=== PATIENT | male | born 1965 | race Caucasian/White ===

== ENCOUNTER 2019-04-04 04:23 | Emergency (ER) | payer BC, OTHER ==
[2019-04-04] MEDS ORDERED: Sodium Chloride 0.9% 1,000 ML IV ONE (04:36)
[2019-04-04] MEDS ORDERED: 50% Dextrose in Water 50 ML Syringe IVPUSH ONE (04:36)
--- NOTE | 2019-04-04 04:38 | EDM.PDOC ---
ED HPI GENERAL MEDICAL PROBLEM - General Chief Complaint: Neurological Problem Stated Complaint: UNKNOWN Time Seen by Provider: 04/04/19 04:36 - History of Present Illness INITIAL COMMENTS - FREE TEXT/NARRATIVE: HISTORY AND PHYSICAL: History of present illness: Patient 54-year-old white male with history of diabetes who presents with concern of generalized weakness and dizziness on arrival patient noted a blood sugar 54 he denies chest pain shortness of breath numbness weakness or other concerns. Review of systems: As per history of present illness and below otherwise all systems reviewed and negative. Past medical history: As per history of present illness and as reviewed below otherwise noncontributory. Surgical history: As per history of present illness and as reviewed below otherwise noncontributory. Social history: No reported history of drug or alcohol abuse. Family history: As per history of present illness and as reviewed below otherwise noncontributory. Physical exam: HEENT: Atraumatic, normocephalic, pupils reactive, negative for conjunctival pallor or scleral icterus, mucous membranes moist, throat clear, neck supple, nontender, trachea midline. Lungs: Clear to auscultation, breath sounds equal bilaterally, chest nontender. Heart: S1S2, regular, negative for clicks, rubs, or JVD. Abdomen: Soft, nondistended, nontender. Negative for masses or hepatosplenomegaly. Negative for costovertebral tenderness. Pelvis: Stable nontender. Genitourinary: Deferred. Rectal: Deferred. Extremities: Atraumatic, negative for cords or calf pain. Neurovascular unremarkable. Neuro: Awake, alert, oriented. Cranial nerves II through XII unremarkable. Cerebellum unremarkable. Motor and sensory unremarkable throughout. Exam nonfocal. Diagnostics: CBC CMP troponin PT/INR UA urine drug screen EtOH chest x-ray EKG CT brain Therapeutics: IV O2 monitor 1 amp D50 Impression: #1 dizziness #2 generalized weakness #3 hypoglycemia #4 diabetes Definitive disposition and diagnosis as appropriate pending reevaluation and review of above. - Related Data Allergies Allergy/AdvReac Type Severity Reaction Status Date / Time Fresh Cut Grass Allergy Other Uncoded 04/04/19 04:31 Seasonal Allergies Allergy Sneezing Uncoded 04/04/19 04:31 Home Meds: Home Meds Glimepiride [Amaryl] 2 mg PO BID 12/30/15 [History] Losartan [Cozaar] 100 mg PO ONETIME 12/30/15 [History] Omeprazole [Prilosec] 20 mg PO DAILY 12/30/15 [History] Sodium Chloride [Nasal [place]] 44 ml NS DAILY 12/30/15 [History] hydroCHLOROthiazide [Hydrochlorothiazide] 25 mg PO DAILY 12/30/15 [History] metFORMIN HCl [Metformin HCl] 1,000 mg PO BID 12/30/15 [History] Loratadine/Pseudoephedrine [Loratadine-D 12HR] 1 each PO DAILY 04/04/19 [History ] Pioglitazone [Actos] 30 mg PO DAILY 04/04/19 [History] Past Medical History HEENT History: Reports: Impaired Vision Cardiovascular History: Reports: High Cholesterol, Hypertension Respiratory History: Reports: None Gastrointestinal History: Reports: None Genitourinary History: Reports: None Musculoskeletal History: Reports: None Neurological History: Reports: None Psychiatric History: Reports: None Endocrine/Metabolic History: Reports: Diabetes, Type II Hematologic History: Reports: None Immunologic History: Reports: None Oncologic (Cancer) History: Reports: None Dermatologic History: Reports: None - Infectious Disease History Infectious Disease History: Reports: Chicken Pox, Mumps - Past Surgical History Head Surgeries/Procedures: Reports: None GI Surgical History: Reports: Appendectomy Social & Family History - Family History Family Medical History: Noncontributory ED ROS GENERAL - Review of Systems Review Of Systems: ROS reveals no pertinent complaints other than HPI. ED EXAM, GENERAL - Physical Exam Exam: See Below (See dictation) Course - Vital Signs Text/Narrative:: Patient emergency department course has been unremarkable I discussed with patient admission for observation in light of his vague symptoms. Patient states he feels better and declines admission to follow-up with his private medical doctor he is return as needed as discussed. Last Recorded V/S: Last Vital Signs Temp 36.1 C 04/04/19 05:24 Pulse 63 04/04/19 05:24 Resp 16 04/04/19 05:24 BP 121/73 04/04/19 05:24 Pulse Ox 98 04/04/19 05:24 - Orders/Labs/Meds Orders: Active Orders 24 hr Category Date Time Status EKG Documentation Completion [RC] STAT Care 04/04/19 04:36 Active Pulse Oximetry [RC] ASDIRECTED Care 04/04/19 04:36 Active DRUG SCREEN, URINE [URCHEM] Stat Lab 04/04/19 04:36 Ordered UA RFX LON AND CULT IF INDIC [URIN] Stat Lab 04/04/19 04:36 Ordered Labs: Laboratory Tests 04/04/19 04/04/19 04/04/19 Range/Units 04:40 04:40 04:40 WBC 8.16 (4.0-11.0) K/uL RBC 5.40 (4.50-5.90) M/uL Hgb 15.3 (13.0-17.0) g/dL Hct 46.5 (38.0-50.0) % MCV 86.1 (80.0-98.0) fL MCH 28.3 (27.0-32.0) pg MCHC 32.9 (31.0-37.0) g/dL RDW Std Deviation 42.5 (28.0-62.0) fl RDW Coeff of Westley 14 (11.0-15.0) % Plt Count 168 (150-400) K/uL MPV 12.10 H (7.40-12.00) fL Neut % (Auto) 59.5 (48.0-80.0) % Lymph % (Auto) 33.2 (16.0-40.0) % Henry % (Auto) 6.5 (0.0-15.0) % Eos % (Auto) 0.7 (0.0-7.0) % Baso % (Auto) 0.1 (0.0-1.5) % Neut # (Auto) 4.9 (1.4-5.7) K/uL Lymph # (Auto) 2.7 H (0.6-2.4) K/uL Henry # (Auto) 0.5 (0.0-0.8) K/uL Eos # (Auto) 0.1 (0.0-0.7) K/uL Baso # (Auto) 0.0 (0.0-0.1) K/uL Nucleated RBC % 0.0 /100WBC Nucleated RBCs # 0 K/uL INR 0.94 Sodium 141 (136-148) mmol/L Potassium 3.8 (3.5-5.1) mmol/L Chloride 103 (98-107) mmol/L Carbon Dioxide 29.5 (21.0-32.0) mmol/L BUN 25 H (7.0-18.0) mg/dL Creatinine 1.4 H (0.8-1.3) mg/dL Est Cr Clr Drug Dosing 58.36 mL/min Estimated GFR (MDRD) 52.8 ml/min Glucose 73 L (74-106) mg/dL POC Glucose (60-110) mg/dL Calcium 9.8 (8.5-10.1) mg/dL Total Bilirubin 0.4 (0.2-1.0) mg/dL AST 38 H (15-37) IU/L ALT 101 H (14-63) IU/L Alkaline Phosphatase 114 (46-116) U/L Troponin I < 0.050 (0.000-0.056) ng/mL Total Protein 7.5 (6.4-8.2) g/dL Albumin 3.9 (3.4-5.0) g/dL Globulin 3.6 (2.6-4.0) g/dL Albumin/Globulin Ratio 1.1 (0.9-1.6) Ethyl Alcohol < 3.0 mg/dL 04/04/19 Range/Units 05:22 WBC (4.0-11.0) K/uL RBC (4.50-5.90) M/uL Hgb (13.0-17.0) g/dL Hct (38.0-50.0) % MCV (80.0-98.0) fL MCH (27.0-32.0) pg MCHC (31.0-37.0) g/dL RDW Std Deviation (28.0-62.0) fl RDW Coeff of Westley (11.0-15.0) % Plt Count (150-400) K/uL MPV (7.40-12.00) fL Neut % (Auto) (48.0-80.0) % Lymph % (Auto) (16.0-40.0) % Henry % (Auto) (0.0-15.0) % Eos % (Auto) (0.0-7.0) % Baso % (Auto) (0.0-1.5) % Neut # (Auto) (1.4-5.7) K/uL Lymph # (Auto) (0.6-2.4) K/uL Henry # (Auto) (0.0-0.8) K/uL Eos # (Auto) (0.0-0.7) K/uL Baso # (Auto) (0.0-0.1) K/uL Nucleated RBC % /100WBC Nucleated RBCs # K/uL INR Sodium (136-148) mmol/L Potassium (3.5-5.1) mmol/L Chloride (98-107) mmol/L Carbon Dioxide (21.0-32.0) mmol/L BUN (7.0-18.0) mg/dL Creatinine (0.8-1.3) mg/dL Est Cr Clr Drug Dosing mL/min Estimated GFR (MDRD) ml/min Glucose (74-106) mg/dL POC Glucose 159 H (60-110) mg/dL Calcium (8.5-10.1) mg/dL Total Bilirubin (0.2-1.0) mg/dL AST (15-37) IU/L ALT (14-63) IU/L Alkaline Phosphatase (46-116) U/L Troponin I (0.000-0.056) ng/mL Total Protein (6.4-8.2) g/dL Albumin (3.4-5.0) g/dL Globulin (2.6-4.0) g/dL Albumin/Globulin Ratio (0.9-1.6) Ethyl Alcohol mg/dL Meds: Medications Discontinued Medications Generic Name Dose Route Start Last Admin Trade Name Freq PRN Reason Stop Dose Admin Dextrose/Water 50 ml 04/04/19 04:36 04/04/19 04:43 Dextrose 50% In Water IVPUSH 04/04/19 04:37 50 ml ONETIME ONE Administration Sodium Chloride 1,000 mls @ 999 mls/hr 04/04/19 04:36 04/04/19 04:44 Normal Saline IV 04/04/19 05:36 999 mls/hr STAT ONE Administration Departure - Departure Time of Disposition: 05:56 Disposition: Home, Self-Care 01 Condition: Good Clinical Impression: Hypoglycemic episode in patient with diabetes mellitus, Dizziness - Discharge Information Referrals: Aj Cates MD [Primary Care Provider] - Forms: ED Department Discharge Additional Instructions: The following information is given to patients seen in the emergency department who are being discharged to home. This information is to outline your options for follow-up care. We provide all patients seen in our emergency department with a follow-up referral. The need for follow-up, as well as the timing and circumstances, are variable depending upon the specifics of your emergency department visit. If you don't have a primary care physician on staff, we will provide you with a referral. We always advise you to contact your personal physician following an emergency department visit to inform them of the circumstance of the visit and for follow-up with them and/or the need for any referrals to a consulting specialist. The emergency department will also refer you to a specialist when appropriate. This referral assures that you have the opportunity for followup care with a specialist. All of these measure are taken in an effort to provide you with optimal care, which includes your followup. Under all circumstances we always encourage you to contact your private physician who remains a resource for coordinating your care. When calling for followup care, please make the office aware that this follow-up is from your recent emergency room visit. If for any reason you are refused follow-up, please contact the [facility] emergency department at and asked to speak to the emergency department charge nurse. Monitor blood sugar as discussed follow-up primary medical doctor return as needed as discussed - My Orders Last 24 Hours: My Active Orders 04/04/19 04:36 EKG Documentation Completion [RC] STAT Pulse Oximetry [RC] ASDIRECTED DRUG SCREEN, URINE [URCHEM] Stat UA RFX LON AND CULT IF INDIC [URIN] Stat - Assessment/Plan Last 24 Hours: My Active Orders 04/04/19 04:36 EKG Documentation Completion [RC] STAT Pulse Oximetry [RC] ASDIRECTED DRUG SCREEN, URINE [URCHEM] Stat UA RFX LON AND CULT IF INDIC [URIN] Stat
[2019-04-04 05:21] LABS: BLOOD UREA NITROGEN,BUN 25 mg/dL (7.0-18.0); CARBON DIOXIDE,CO2 29.5 mmol/L (21.0-32.0); CHLORIDE,CL 103 mmol/L (98-107); GLUCOSE RANDOM 73 mg/dL (74-106); POTASSIUM,K 3.8 mmol/L (3.5-5.1); SODIUM,NA 141 mmol/L (136-148)
[2019-04-04 05:24] VITALS: BP 121/73; PULSE 63
--- NOTE | 2019-04-04 05:41 | CR ---
INDICATION: Dizzy, sweating and hypoglycemia. TECHNIQUE: Chest 1 view COMPARISON: None FINDINGS: Cardiovascular and mediastinum: Heart size and vasculature are normal in caliber and appearance. Lungs and pleural spaces: No pleural effusion or pneumothorax. Left lung base laterally is less well defined although probably within normal limits. Bones and soft tissues: No significant findings. IMPRESSION: Unremarkable single view chest. Dictated by Palomo Salinas MD @ Apr 04 2019 5:38AM Signed by Dr. Palomo Salinas @ Apr 04 2019 5:39AM
--- NOTE | 2019-04-04 05:44 | CT ---
INDICATION: Dizzy, sweaty and hypoglycemia TECHNIQUE: CT head without contrast. COMPARISON: None. FINDINGS: CSF spaces: Within normal limits for age. Brain parenchyma: The baron-white differentiation is normal. No sign of mass, hemorrhage, or midline shift. 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 The visualized orbits are grossly unremarkable. No skull fractures. IMPRESSION: Unremarkable noncontrast head CT. Please note that all CT scans at this facility use dose modulation, iterative reconstruction, and/or weight-based dosing when appropriate to reduce radiation dose to as low as reasonably achievable. Dictated by Palomo Salinas MD @ Apr 04 2019 5:39AM Signed by Dr. Palomo Salinas @ Apr 04 2019 5:42AM
== END 2019-04-04 06:12 | disposition home or self-care (01) ==
LOC: MW.ED 04:23
DX: E11.649 Type 2 diabetes mellitus with hypoglycemia without coma (principal); R53.1 Weakness; E78.00 Pure hypercholesterolemia, unspecified; I10 Essential (primary) hypertension; Z91.048 Other nonmedicinal substance allergy status; Z79.899 Other long term (current) drug therapy; Z79.84 Long term (current) use of oral hypoglycemic drugs
CPT/HCPCS: 36415; 70450; 71045; 80053; 82962; 84484; 85025; 85610; 93005; 96361; 96374; 99285; G0480; J7040; J7060; 99284